=== PATIENT | female | born 1945 | race Caucasian/White ===

== ENCOUNTER 2018-04-10 07:33 | Day surgery (SDC) | payer MEDICARE, OTHER ==
--- NOTE | 2018-04-10 05:31 | History and Physical Report ---
DATE: 04/09/2018. PRIMARY CARE PHYSICIAN: Dr. Blount. CHIEF COMPLAINT AND HISTORY OF CHIEF COMPLAINT: This patient presents with a history of an intractable lumbar radiculopathy. Due to the failure of therapies , a spinal cord stimulator trial was conducted on 03/24/2018 with 75 to 85 percent pain control. Due to the failure of therapy and the success of the trial, she presents today for implantation of a permanent system. PAST MEDICAL HISTORY: Hypertension, peripheral neuropathy, bladder dysfunction , degenerative arthritis, fibromyalgia. PAST SURGICAL HISTORY: Breast surgery, arm surgery, cataract surgery. MEDICATIONS ON ADMISSION: To be provided. ALLERGIES: Morphine. SOCIAL HISTORY: Noncontributory. FAMILY HISTORY: Blood pressure, hypertension, thyroid disease. REVIEW OF SYSTEMS: The patient is appropriate and in no acute distress. The remainder of the systems review is noted. PHYSICAL EXAMINATION: General: Height and weight unavailable. Vital Signs: Not available. HEENT: Within normal limits. Lungs: Clear. Heart: Regular rate and rhythm. Abdomen: Nontender. Musculoskeletal: Examination of the musculoskeletal system shows diffuse tenderness throughout the lumbar spine. Range of motion produces pain into both legs, across the front and back surface. Mild motor and sensory abnormalities are noted; in particular below the knees, calf muscles, ankles, and feet. Ambulation: No assistive device utilized. Neurologic: Cranial nerves are intact. IMPRESSION: LUMBAR RADICULOPATHY, ICD-10 CODE M54.16 AND M54.17. PLAN: The patient is here for implantation of a permanent spinal cord stimulator after the successful trial and the failure of other therapies. The potential risks, side effects, and complications have all been carefully reviewed and discussed. The procedure will be considered outpatient, although an overnight stay will be evaluated. JOB NUMBER: [id number] cc: Dr. Jose Alejandro CAMARA
[~2018-04-10 07:33] MED LIST: ACETAMINOPHEN 1,000 MG/100 ML BTL IV ONE; CEFAZOLIN 2 Gram 2 GM/50 ML BAG IVPB ONE; FAMOTIDINE 20MG TABLET PO ONE; MECLIZINE 25 MG TABLET PO ONE; METOCLOPRAMIDE 10 MG TABLET PO ONE
[2018-04-10] MEDS ORDERED: LIDOCAINE 1% W/EPI 1:200,000 MPF 30ML SQ ONE (07:34)
[2018-04-10] MEDS ORDERED: BUPIVACAINE 0.5% W/EPI MPF 30 ML VIAL IVP ONE (07:34)
[2018-04-10] MEDS ORDERED: PROPOFOL 10 MG/ML VIAL IV ONE (07:34)
[2018-04-10] MEDS ORDERED: FENTANYL PF 100MCG/2ML VIAL IV ONE (07:34)
[2018-04-10] MEDS ORDERED: MIDAZOLAM HCL 2MG/2ML VIAL IV ONE (07:34)
[2018-04-10] MEDS ORDERED: LIDOCAINE 2% MDV (20MG/ML) 20ML VIAL IV ONE (07:34)
[2018-04-10] MEDS ORDERED: CEFAZOLIN 1G VIAL IM ONE (07:34)
[2018-04-10] MEDS ORDERED: HYDROMORPHONE HCL 2 MG/ML VIAL IV ONE (07:34)
--- NOTE | 2018-04-11 06:19 | Operative Note ---
DATE OF SURGERY: 04/10/18 PREOPERATIVE DIAGNOSIS: LUMBAR RADICULOPATHY, ICD-10 CODE = M54.16 AND M54.17. OPERATION: 1. FLUOROSCOPICALLY-GUIDED LEFT EPIDURAL ACCESS T12-L1, PLACEMENT OF SPINAL CORD STIMULATOR LEAD 1, [employer] IN[employer]INION 16 WITH 6 ELECTRODES POSITIONED LEFT T7. 2. FLUOROSCOPICALLY-GUIDED EPIDURAL ACCESS LEFT T11-12, PLACEMENT OF SPINAL CORD STIMULATOR LEAD 2, A [employer] IN[employer] 16 WITH 6 ELECTRODES POSITIONED RIGHT T7. 3. COMPLEX PROGRAMMING OF LEAD 1 AND LEAD 2 OVER 20 MINUTES. LEAD 1, 20 MINUTES AND LEAD 2. 4. INCISION, SUBCUTANEOUS DISSECTION, AND ANCHORING OF LEAD 1 AND LEAD 2 TO SUPRASPINOUS FASCIA WITH A [employer] LOCKING ANCHOR. 5. INCISION, SUBCUTANEOUS DISSECTION, AND CREATION OF SUBCUTANEOUS POUCH AT LEFT POSTERIOR/SUPERIOR GLUTEAL MARGIN FOR PLACEMENT FOR PLACEMENT OF GENERATOR IDENTIFIED A [employer] SCIENTIFIC PROGRAMMABLE RECHARGEABLE WAVEWRITER. 6. TUNNELING BETWEEN POUCHES, PLACEMENT OF EXTERNAL PORTION OF LEAD 1 AND LEAD 2 INTO GENERATOR POUCH, EACH LEAD INTERFACED TO GENERATOR. 7. PLACEMENT OF GENERATOR INTO POUCH SECURING TO POSTERIOR FASCIA WITH NONABSORBABLE SUTURE. PLACEMENT OF LEADS INTO POUCH. CLOSURE OF BOTH INCISIONS VICRYL FOR FASCIA AND RUNNING SUBCUTICULAR VICRYL FOR SKIN. DERMABOND CLOSURE. 8. COMPLEX PROGRAMMING INTERNAL GENERATOR HOME USE TWO STIMULATORS RECOVERY ROOM 20 MINUTES. SURGEON: AD ACKERMAN D.O. ANESTHESIA: LOCAL SEDATION ANESTHESIA PROVIDER: ROSELYN INDICATION: This patient presents with pain, which is low back, hip, and leg. Due to the failure of therapy, spinal cord stimulator trial was conducted with 75-85% pain control. Due to the failure of therapy and the success of the trial , patient presents today for implantation of a permanent system. PROCEDURE: Intravenous line, vital sign monitoring, IV sedation. Prepped and draped sterile technique. Under imaging, the epidural interspace on the left at 11-12 and 12-1 marked, infiltrated, then using two standard curved access Epimed needles with [id number]-gl-gabgenegdy, the space was accessed. At 12-1, spinal cord stimulator lead 1, a [employer] Infinion 16 with 6 electrodes was positioned left at T7. With the epidural access at 11-12, spinal cord stimulator lead 2, a [employer] Infinion 16 with 6 electrodes was positioned right at T7. Complex programming of lead 1 over 20 minutes followed by complex programming of lead 2 over 20 minutes resulting in complete patterns of stimulation across the back and into legs; patient indicating we are in all of the areas of the pain. She was given the option to implant, continue to program, or remove; she opted to implant. The skin above and below both needles was infiltrated with local, an incision made, and subcutaneous dissection was conducted to the supraspinous fascia. The needles were removed and the leads were anchored to the fascia with a [employer] and nonabsorbable suture. At the left posterior gluteal margin; a site picked by the patient for the generator, skin infiltrated, incision made and subcutaneous dissection was conducted to form a pouch of suitable size and depth for the generator, a [employer]mable Rechargeable WaveWriter. A tunneling tool was used to carry the leads into the generator pouch and then each lead was interfaced to the generator. Antibiotic irrigation and Bovie for hemostasis at both sites. The incisions were then both closed after the leads were placed into the skin and the generator into the pouch, with a STRATAFIX suture, 2-0 fascia, 3-0 skin. Dermabond closure approximating the edges of the wounds. She was transported to the Recovery Room stable. No side-effects from the procedure or the sedation. When fully awake and alert, complex programming in the Recovery Room performed re-establishing stimulation and pain control. The patient was instructed on the use of the system, provided with information and error messaging, and then prepared for discharge. DISCHARGE INSTRUCTIONS: 1. Sites remain clean and dry. She may shower with the Dermabond but not sit in water or hot tubs. 2. Standard medications can be resumed. She will start an antibiotic Levaquin 500 mg once a day for 14 days. 3. The office will contact the patient in 2-3 days to set up an appointment in 7 -10 days to evaluate the sites. Until then, she is to keep her activities controlled limiting bend, lift, push, pull. All other instructions provided, numbers to contact with problems given. She was then discharged. cc: Dr. Dejan Blount JOB NUMBER: [id number] MTDD
--- NOTE | 2018-04-11 20:23 | RADIOLOGY REPORT ---
EXAM: SPINE, 1 VIEW HISTORY: POST SPINAL CORD STIMULATOR IMPLANT. TECHNIQUE: Single AP view of the thoracic and lumbar spine beginning at the level of approximately T5 and extending down into the lower sacrum. COMPARISON: None. FINDINGS: There is a battery pack partially included in the left lower quadrant with the two wires extending from this to the spine at the level of the L1 vertebra and then ascend up into the thoracic level up to approximately the T6 level. There is also a battery pack overlying the right lower quadrant, probably related to a sacral spinal stimulator device with the wire extending down to overlie the right side of the sacrum. Mild lumbar curve to the left. IMPRESSION: 1. SPINAL STIMULATOR DEVICE ON THE LEFT WITH THE ELECTRODES EXTENDING UP TO THE APPROXIMATE T6 LEVEL. 2. SACRAL SPINAL STIMULATOR DEVICE ON THE RIGHT WITH THE SINGLE ELECTRODE LEAD EXTENDING OVER THE RIGHT SIDE OF THE SACRUM. JOB NUMBER: [id number] MTDD
== END 2018-04-10 12:25 | disposition home or self-care (01) ==
LOC: SUR 07:33
PROVIDERS: ATTEND Pain Medicine Interventional Pain Medicine
DX: M54.16 Radiculopathy, lumbar region (principal); M54.17 Radiculopathy, lumbosacral region; E11.9 Type 2 diabetes mellitus without complications; Z79.4 Long term (current) use of insulin; I10 Essential (primary) hypertension; E78.00 Pure hypercholesterolemia, unspecified; H40.9 Unspecified glaucoma
CPT/HCPCS: 63650; 63685; 01936; 95972; 72020; J3010; J1170; J0690; C1820; C1883